=== PATIENT | male | born 1960 | race Caucasian/White ===

== ENCOUNTER 2017-08-28 12:14 | Outpatient (CLI) | payer OTHER ==
--- NOTE | 2017-08-28 12:53 | RAD ---
LUMBAR SPINE 4 VIEWS: HISTORY: Low back pain. FINDINGS/IMPRESSION: No fracture, subluxation, or bony destruction is seen. No change in alignment is seen on flexion or extension. POS: [facility]
== END 2017-08-28 12:15 | disposition home or self-care (01) ==
LOC: SCSRAD 12:14
PROVIDERS: ATTEND Family Medicine
DX: M54.5 Low back pain (principal); G89.29 Other chronic pain
CPT/HCPCS: 72110

== ENCOUNTER 2022-07-17 12:43 | Outpatient (CLI) | payer OTHER | END 2022-07-17 12:44 | disposition home or self-care (01) | LOC: SCSRAD 12:43 | PROVIDERS: ATTEND Family Medicine | DX: M47.22 Other spondylosis with radiculopathy, cervical region (principal) | CPT/HCPCS: 72040 ==

== ENCOUNTER 2022-10-31 08:29 | Outpatient (CLI) | payer OTHER ==
[2022-10-31 10:58] LABS: #Eosinphils 0.2 10x3/uL (0.0-0.5); #Monocytes 0.5 10x3/uL (0.0-1.1); #Neutrophils 4.5 10x3/uL (1.5-8.4); %Basophils 0.6 % (0.0-2.0); %Lymphocytes 20.8 % (18.0-47.0); %Neutrophils 67.9 % (40.0-75.0); Hematocrit 44.4 % (38.8-50.0); Hemoglobin 14.8 g/dL (13.5-17.5); Mean Corpuscular HGB CONC 33.3 g/dL (32.0-36.0); Mean Corpuscular Hemoglobin 30.1 pg (27.0-33.0); Mean Corpuscular Volume 90.2 fl (81.2-95.1); Mean Platelet Volume 9.9 fl (7.4-10.4); Platelet Count 191 10x3/uL (150-450); Red Blood Cell (RBC) Count 4.92 10x6/uL (4.32-5.72); White Blood Cell (WBC) Count 6.7 10x3/uL (3.5-10.5)
[2022-10-31 11:10] LABS: ALT (SGPT) 41 U/L (8-55); AST (SGOT) 25 U/L (5-34); Albumin 4.3 g/dL (3.4-4.8); Alkaline Phosphatase 80 U/L (40-110); Anion Gap 14 mmol/L (10-20); BUN (Urea Nitrogen) 21 mg/dL (8.4-25.7); Bilirubin, Total 0.4 mg/dL (0.2-1.2); Calc. Creatinine Clearance 0 mL/min (70-130); Carbon Dioxide 23 mmol/L (23-31); Chloride 107 mmol/L (98-107); Estimated GFR 95; Globulin 2.3 g/dL (2.4-3.5); Glucose 84 mg/dL (80-115); Potassium 4.4 mmol/L (3.5-5.1); Protein, Total 6.6 g/dL (5.8-8.1); Sodium 140 mmol/L (136-145)
== END 2022-10-31 08:30 | disposition home or self-care (01) ==
LOC: LABBT 08:29
PROVIDERS: ATTEND Surgery
DX: Z01.818 Encounter for other preprocedural examination (principal); K64.2 Third degree hemorrhoids
CPT/HCPCS: 80053; 85025; 93005; 93010

== ENCOUNTER 2022-11-04 07:45 | Day surgery (SDC) | payer OTHER ==
[2022-11-04] MEDS ORDERED: Sodium Chloride 0.9% 100 ML ONE (09:36)
[2022-11-04] MEDS ORDERED: cefOXitin 2 GM VIAL ONE (09:36)
[2022-11-04] MEDS ORDERED: EPINEPHrine 1 MG/ML AMP ONE (10:33)
[2022-11-04] MEDS ORDERED: Bupivacaine 0.25% HCL 30 ML VIAL ONE (10:33)
[2022-11-04] MEDS ORDERED: Bacitracin Zinc Ointment 30 gm TUBE ONE (10:33)
[2022-11-04] MEDS ORDERED: fentaNYL PF 100 MCG/2 ML SYRINGE ONE ×3 (10:35→12:20)
[2022-11-04] MEDS ORDERED: Dexamethasone 20 MG/5 ML VIAL ONE (10:55)
[2022-11-04] MEDS ORDERED: Lidocaine 1% PF 5 ML VIAL ONE (10:55)
[2022-11-04] MEDS ORDERED: Rocuronium Bromide 10 MG/ML (10ML VIAL) ONE (10:55)
[2022-11-04] MEDS ORDERED: Ondansetron PF 4 MG/2 ML Vial ONE (10:55)
[2022-11-04] MEDS ORDERED: Glycopyrrolate 0.2 MG/ML 5 ML SYRINGE ONE (10:55)
[2022-11-04] MEDS ORDERED: PROPOFOL 200 MG/20 ML VIAL ONE (10:55)
[2022-11-04] MEDS ORDERED: NEOSTIGMINE 3 MG/3 ML SYR 3 MG/3 ML SYRINGE ONE (10:55)
[2022-11-04] MEDS ORDERED: HYDROcodone/Acetaminophen 5/325 mg Tablet ONE (13:21)
== END 2022-11-04 14:10 | disposition home or self-care (01) ==
LOC: SDC 07:45
PROVIDERS: ATTEND Surgery
PROC: 06BY0ZC Excision of Hemorrhoidal Plexus, Open Approach (ICD-10-PCS; principal; 2022-11-04)
DX: K64.2 Third degree hemorrhoids (principal); E78.00 Pure hypercholesterolemia, unspecified; Z79.899 Other long term (current) drug therapy
CPT/HCPCS: 88304; J0171; J0694; J1100; J2405; J2704; J3490; S0020

== ENCOUNTER 2022-11-12 11:02 | Outpatient (CLI) | payer OTHER ==
[2022-11-12 11:47] LABS: #Basophils 0.1 10x3/uL (0.0-0.2); #Eosinphils 0.1 10x3/uL (0.0-0.5); #Monocytes 0.8 10x3/uL (0.0-1.1); #Neutrophils 7.3 10x3/uL (1.5-8.4); %Basophils 0.6 % (0.0-2.0); %Eosinophils 1.1 % (0.0-6.0); %Lymphocytes 18.8 % (18.0-47.0); %Monocytes 7.3 % (0.0-10.0); %Neutrophils 71.2 % (40.0-75.0); Hemoglobin 15.2 g/dL (13.5-17.5); Mean Corpuscular HGB CONC 33.8 g/dL (32.0-36.0); Mean Corpuscular Hemoglobin 30.6 pg (27.0-33.0); Mean Corpuscular Volume 90.7 fl (81.2-95.1); Mean Platelet Volume 9.8 fl (7.4-10.4); Platelet Count 237 10x3/uL (150-450); Red Blood Cell (RBC) Count 4.96 10x6/uL (4.32-5.72); White Blood Cell (WBC) Count 10.3 10x3/uL (3.5-10.5)
== END 2022-11-12 11:03 | disposition home or self-care (01) ==
LOC: LABBT 11:02
PROVIDERS: ATTEND Surgery
DX: Z01.812 Encounter for preprocedural laboratory examination (principal); K62.5 Hemorrhage of anus and rectum
CPT/HCPCS: 85025

== ENCOUNTER 2023-09-04 12:29 | Outpatient (CLI) | payer OTHER ==
[2023-09-04 13:30] LABS: #Basophils 0.04 10x3/uL (0.0-0.2); #Monocytes 0.52 10x3/uL (0.0-1.1); #Neutrophils 5.48 10x3/uL (1.5-8.4); %Basophils 0.5 % (0.0-2.0); %Eosinophils 1.3 % (0.0-6.0); %Lymphocytes 18.2 % (18.0-47.0); %Monocytes 6.9 % (0.0-10.0); %Neutrophils 72.4 % (40.0-75.0); Hematocrit 39.8 % (38.8-50.0); Hemoglobin 13.8 g/dL (13.5-17.5); Mean Corpuscular HGB CONC 34.7 g/dL (32.0-36.0); Mean Corpuscular Hemoglobin 31.1 pg (27.0-33.0); Mean Corpuscular Volume 89.6 fL (81.2-95.1); Mean Platelet Volume 9.9 fL (7.4-10.4); Platelet Count 197 10x3/uL (150-450); RBC Distribution Width 12.8 % (11.5-14.5); Red Blood Cell (RBC) Count 4.44 10x6/uL (4.32-5.72); White Blood Cell (WBC) Count 7.6 10x3/uL (3.5-10.5)
[2023-09-04 14:04] LABS: ALT (SGPT) 32 U/L (8-55); AST (SGOT) 20 U/L (5-34); Albumin 3.9 g/dL (3.4-4.8); Alkaline Phosphatase 80 U/L (40-110); Anion Gap 12 mmol/L (10-20); BUN (Urea Nitrogen) 21 mg/dL (8.4-25.7); Bilirubin, Direct 0.2 mg/dL (0.1-0.3); Bilirubin, Total Less than 0.2 mg/dL (0.2-1.2); Calc. Creatinine Clearance 0 mL/min (70-130); Calcium 8.8 mg/dL (7.8-10.44); Carbon Dioxide 24 mmol/L (23-31); Chloride 109 mmol/L (98-107); Estimated GFR 68; Globulin 2.3 g/dL (2.4-3.5); Glucose 109 mg/dL (80-115); Potassium 3.9 mmol/L (3.5-5.1); Protein, Total 6.2 g/dL (5.8-8.1); Sodium 141 mmol/L (136-145)
== END 2023-09-04 12:30 | disposition home or self-care (01) ==
LOC: LABBT 12:29
PROVIDERS: ATTEND Surgery
DX: Z01.818 Encounter for other preprocedural examination (principal); K80.20 Calculus of gallbladder without cholecystitis without obstruction
CPT/HCPCS: 80053; 80076; 85025

== ENCOUNTER 2023-09-05 05:44 | Day surgery (SDC) | payer OTHER ==
[2023-09-04 13:10] VITALS: BMI 27.1
[2023-09-05] MEDS ORDERED: Bupivacaine 0.25% HCL 30 ML VIAL ONE (06:36)
[2023-09-05] MEDS ORDERED: EPINEPHrine 1 MG/ML VIAL ONE (06:36)
[2023-09-05] MEDS ORDERED: Indocyanine Green 25 MG/10 ML VIAL ONE (06:36)
[2023-09-05] MEDS ORDERED: Dexamethasone 4 mg/ml Vial ONE (06:59)
[2023-09-05] MEDS ORDERED: SUGAMMADEX SODIUM 200 MG/2 ML VIAL ONE (06:59)
[2023-09-05] MEDS ORDERED: Ondansetron PF 4 MG/2 ML Vial ONE (06:59)
[2023-09-05] MEDS ORDERED: fentaNYL PF 100 MCG/2 ML SYRINGE ONE (06:59)
[2023-09-05] MEDS ORDERED: Rocuronium Bromide 10 MG/ML (10ML VIAL) ONE (06:59)
[2023-09-05] MEDS ORDERED: Lidocaine 1% PF 5 ML VIAL ONE (06:59)
[2023-09-05] MEDS ORDERED: PROPOFOL 40 ML ONE (06:59)
[2023-09-05] MEDS ORDERED: Sodium Chloride 0.9% 100 ML ONE (07:23)
[2023-09-05] MEDS ORDERED: cefOXitin 2 GM VIAL ONE (07:23)
[2023-09-05] MEDS ORDERED: ePHEDrine Sulfate 50 MG/10 ML VIAL ONE (08:07)
[2023-09-05] MEDS ORDERED: Ketorolac Tromethamine 30 MG (1 mL) VIAL ONE (08:18)
[2023-09-05] MEDS ORDERED: fentaNYL 50 mcg/mL 1 mL Vial ONE ×3 (09:09→09:40)
[2023-09-05] MEDS ORDERED: HYDROcodone/Acetaminophen 5/325 mg Tablet ONE (11:10)
== END 2023-09-05 11:18 | disposition home or self-care (01) ==
LOC: SDC 05:44
PROVIDERS: ATTEND Surgery
PROC: 0FT44ZZ Resection of Gallbladder, Percutaneous Endoscopic Approach (ICD-10-PCS; principal; 2023-09-05)
DX: K80.10 Calculus of gallbladder with chronic cholecystitis without obstruction (principal); E78.5 Hyperlipidemia, unspecified; F32.A Depression, unspecified; Z98.52 Vasectomy status; Z98.890 Other specified postprocedural states; Z79.899 Other long term (current) drug therapy; Z01.818 Encounter for other preprocedural examination; K80.20 Calculus of gallbladder without cholecystitis without obstruction
CPT/HCPCS: 80053; 80076; 85025; 88304; C1889; J0171; J0665; J0694; J1100; J1885; J2405; J2704; J3010; J3490